=== PATIENT | female | born 1955 | race African-American/Black ===

== ENCOUNTER 2017-03-04 17:51 | Emergency (ER) | payer MEDICARE, OTHER ==
[~2017-03-04] VITALS: Ht 167.6 cm; Wt 113.4 kg
[~2017-03-04 17:51] MED LIST: ROBAXIN-750750 MG PO; TYLENOL EXTRA500 MG ORAL
--- NOTE | 2017-03-04 18:44 | Emergency Room Report ---
History of Present Illness General Chief Complaint: Earache Present Illness HPI 61-year-old female presents emergency department complaining of a history of impacted cerumen with difficulty hearing x 6 months. In addition to itching on her back over her location of surgical scar x 6 months. Patient also reports insect bite to the right flank x3 days. Denies fevers chills, nausea, vomiting , swelling, erythema, increased temperature palpation to the surgical scar or insect bite. Patient denies discharge, crusting or tenderness. Patient denies tinnitus, discharge from the ears, ear pain. Denies CP, Palpitations, LOC, AMS, dizziness, Changes in Vision, Sensation, paresthesias, or a sudden severe headache. Pt. has hx of DM. Allergies: Coded Allergies: SULFA (SULFONAMIDE ANTIBIOTICS) (Verified Allergy, Unknown, 03/16/16) Patient History Past Medical History: see triage record Past Surgical History: none Pertinent Family History: none Now: No Immunizations: UTD Reviewed Nursing Documentation: PMH: Agreed, PSxH: Agreed Nursing Documentation-PMH Hx Hypertension: Yes Hx Asthma: Yes Hx COPD: Yes Hx Diabetes: Yes - Borderline Review of Systems All Other Systems: negative except mentioned in HPI Physical Exam Vital Signs Date Time Temp Pulse Resp B/P Pulse Ox O2 Delivery O2 Flow Rate FiO2 03/04/17 18:04 97.9 75 20 138/80 98 Room Air Sp02 EP Interpretation: reviewed, normal General Appearance: no apparent distress, alert, GCS 15, non-toxic Head: normocephalic, atraumatic Eyes: bilateral eye PERRL, bilateral eye normal inspection ENT: hearing grossly normal, normal pharynx, no angioedema, normal voice, TMs + canals normal, uvula midline, other - TM's and Canals are WNL , free of debris , no evidence of infection. Neck: full range of motion, supple/symm/no masses Respiratory: chest non-tender, lungs clear, normal breath sounds, speaking full sentences Cardiovascular #1: regular rate, rhythm, no edema Rectal: deferred Musculoskeletal: back normal, gait/station normal, normal range of motion, non- tender Neurologic: alert, oriented x3, responsive, motor strength/tone normal, sensory intact, speech normal Psychiatric: judgement/insight normal, memory normal, mood/affect normal Skin: normal color, no rash, warm/dry, well hydrated, other - 1 inch surgical scar to the posterior upper T-spine, no erythema, obvious excoriations, no d/c or crusting noted. pt. also has insect bite 3mm in size to the right flank, no surrounding erythema, no increased temperature to palpation, mild swelling noted. Lymphatic: no adenopathy Medical Decision Making PA Attestation Dr. Escobar is my supervising Physician whom patient management has been discussed with. Diagnostic Impression: Primary Impression: Itchy skin Additional Impression: Insect bite Qualified Codes: W57.XXXA - Bitten or stung by nonvenomous insect and other nonvenomous arthropods, initial encounter ER Course 61-year-old female presents emergency department complaining of a history of impacted cerumen with difficulty hearing x 6 months. In addition to itching on her back over her location of surgical scar x 6 months. Patient also reports insect bite to the right flank x3 days. Denies fevers chills, nausea, vomiting , swelling, erythema, increased temperature palpation to the surgical scar or insect bite. Patient denies discharge, crusting or tenderness. Patient denies tinnitus, discharge from the ears, ear pain. Ddx considered but are not limited to cellulitis, scabies, shingles, varicella, dermatitis, urticaria, eczema, tinea, OE/OM, cerumen impaction. Vital signs: are WNL, pt. is afebrile H&PE are most consistent with itchy post surgical scar, and insect bite, no evidence of secondary infection at this time. pt. TM's and canals are also WNL no infection or cerumen impaction noted. ORDERS: none required at this time, the diagnosis is clinical ED INTERVENTIONS: None required at this time. DISCHARGE: At this time pt. is stable for d/c to home. Will provide printed patient care instructions, and any necessary prescriptions. Care plan and follow up instructions have been discussed with the patient prior to discharge. Last Vital Signs Date Time Temp Pulse Resp B/P Pulse Ox O2 Delivery O2 Flow Rate FiO2 03/04/17 18:04 97.9 75 20 138/80 98 Room Air Disposition: HOME, SELF-CARE Condition: Stable Scripts Hydrocortisone 2% Cream (ANTI-ITCH 2% CREAM) Y Cr 1 APPLIC TP BID, #28.3 GM Prov: Nusrat Vanegas 03/04/17 Bacitracin/Polymyxin B Sulfate (BACITRACIN-POLYMYXIN OINTMENT) 28.35 Gm Oint...g. 1 APPLIC TP BID, #28.3 ML Prov: Nusrat Vanegas 03/04/17 Patient Instructions: Insect Bite, [id number] Additional Instructions: Take medications as directed. Follow up with PCP in 3-5 days Return sooner to ED if new symptoms occur, or current symptoms become worse. - Please note that this Emergency Department Report was dictated using [employer] technology software, occasionally this can lead to erroneous entry secondary to interpretation by the dictation equipment. Nusrat Vanegas March 04, 2017 18:44
[2017-03-04] MEDS ORDERED: BACITRACIN-P28.35 GM TP (18:46)
[2017-03-04] MEDS ORDERED: ANTI-ITCH28 G1 TP (18:46)
[2017-03-04 19:09] VITALS: BP 138/80
[2017-03-04 19:17] VITALS: BP 138/80
== END 2017-03-04 19:00 | disposition home or self-care (01) ==
LOC: EMR 18:30
DX: L29.9 Pruritus, unspecified (principal); S30.860A Insect bite (nonvenomous) of lower back and pelvis, initial encounter; S30.861A Insect bite (nonvenomous) of abdominal wall, initial encounter; W57.XXXA Bitten or stung by nonvenomous insect and other nonvenomous arthropods, initial encounter; Y92.89 Other specified places as the place of occurrence of the external cause; I10 Essential (primary) hypertension; J44.9 Chronic obstructive pulmonary disease, unspecified; Z88.2 Allergy status to sulfonamides
CPT/HCPCS: 99284

== ENCOUNTER 2017-06-30 13:05 | Emergency (ER) | payer MEDICARE, OTHER ==
[~2017-06-30] VITALS: Ht 167.6 cm; Wt 118.8 kg
[~2017-06-30 13:05] MED LIST changes: +ANTI-ITCH28 G1 TP; +BACITRACIN-P28.35 GM TP
[2017-06-30 13:58] VITALS: BP 130/95
[2017-06-30] MEDS ORDERED: PROMETHAZINE-C118 M1 ORAL (14:02)
[2017-06-30] MEDS ORDERED: AMOXICILLIN500 MG ORAL (14:02)
[2017-06-30] MEDS ORDERED: TYLENOL EXTRA500 MG ORAL (14:02)
--- NOTE | 2017-06-30 15:44 | Emergency Room Report ---
History of Present Illness General Chief Complaint: Flu Like Symptoms Source: Patient Present Illness HPI 61-year-old female presents ED for evaluation. Patient states the last 3 days she's been having cough and sore throat. Cough is dry. Nonproductive. Denies fevers or chills. Notes pain with swallowing. Pain is an 8/10, burning. Denies sick contacts or recent travel. No other aggravating or leading factors. Denies any other associated symptoms Allergies: Coded Allergies: SULFA (SULFONAMIDE ANTIBIOTICS) (Verified Allergy, Unknown, 03/16/16) Patient History Past Medical History: DM, HTN, asthma, COPD Pertinent Family History: none Social History: Denies: smoking, alcohol use, drug use Now: No Immunizations: UTD Reviewed Nursing Documentation: PMH: Agreed, PSxH: Agreed Nursing Documentation-PMH Hx Hypertension: Yes Hx Asthma: Yes Hx COPD: Yes Hx Diabetes: Yes - Borderline Review of Systems All Other Systems: negative except mentioned in HPI Physical Exam Vital Signs Date Time Temp Pulse Resp B/P (MAP) Pulse Ox O2 Delivery O2 Flow Rate FiO2 06/30/17 13:12 97.7 75 20 130/95 98 Room Air Sp02 EP Interpretation: reviewed, normal General Appearance: no apparent distress, alert, GCS 15, non-toxic Head: normocephalic Eyes: bilateral eye normal inspection, bilateral eye PERRL ENT: pharyngeal erythema, other - bilateral TM poor light reflex Neck: normal inspection Respiratory: chest non-tender, lungs clear, normal breath sounds, speaking full sentences Cardiovascular #1: normal inspection Gastrointestinal: normal inspection Rectal: deferred Genitourinary: no CVA tenderness Musculoskeletal: normal inspection Neurologic: alert, oriented x3, responsive, motor strength/tone normal, sensory intact, speech normal Psychiatric: normal inspection Skin: normal inspection Lymphatic: normal inspection Medical Decision Making Diagnostic Impression: Primary Impression: Pharyngitis Qualified Codes: J02.9 - Acute pharyngitis, unspecified ER Course Hospital Course 61-year-old female presents to ED complaining of sore throat + cough Differential diagnoses include: URI, pharyngitis, otitis media Clinical course Patient placed on stretcher. After initial history, physical exam reveals an eldrly female in no acute distress. Bilateral TM unremarkable. There is pharyngeal erythema w/o tonsillar exudates. bilateral TM poor light reflex. No lymphadenopathy. Clinical findings consistent with pharyngitis. Diagnosis - pharyngitis Stable and discharged home with prescriptions for Tylenol, cough syrup, amoxicillin. Instructed to followup with PMD. return to ED if symptoms recur or worsen Last Vital Signs Date Time Temp Pulse Resp B/P (MAP) Pulse Ox O2 Delivery O2 Flow Rate FiO2 06/30/17 13:58 75 20 Room Air 06/30/17 13:58 97.7 130/95 98 Status: improved Disposition: HOME, SELF-CARE Condition: Stable Scripts Acetaminophen* (TYLENOL EXTRA STRENGTH*) 500 Mg Tablet 500 MG ORAL Q8H Y for Prn Headache/Temp > 101, #30 TAB 0 Refills Prov: LIU DEVRIES M.D. 06/30/17 Codeine/Promethazine Hcl* (PROMETHAZINE-CODEINE SYRUP*) 118 Ml Syrup 5 ML ORAL Q6H Y for For Cough, #118 ML 0 Refills Prov: LIU DEVRIES M.D. 06/30/17 Amoxicillin* (AMOXIL*) 500 Mg Capsule 500 MG ORAL THREE TIMES A DAY, #21 CAP Prov: LIU DEVRIES M.D. 06/30/17 Referrals: NON PHYSICIAN (PCP) Patient Instructions: Pharyngitis, [id number] LIU DEVRIES M.D. Jun 30, 2017 15:44
== END 2017-06-30 14:20 | disposition home or self-care (01) ==
LOC: EMR 14:18
DX: J02.9 Acute pharyngitis, unspecified (principal); J44.9 Chronic obstructive pulmonary disease, unspecified; J45.909 Unspecified asthma, uncomplicated; R73.03 Prediabetes; I10 Essential (primary) hypertension
CPT/HCPCS: 99284